=== PATIENT | female | born 1950 | race Caucasian/White ===

== ENCOUNTER 2018-08-01 17:11 | Emergency (ER) | payer OTHER, SELFPAY ==
[2018-08-01 17:13] VITALS: BP 136/62; PULSE 54; RESP 18; TEMP 36.1; O2SAT 99; BMI 22.1
--- NOTE | 2018-08-01 17:16 | NURSING ---
NO OLD EKGS
--- NOTE | 2018-08-01 17:33 | RAD_ITS ---
STUDY: X-RAY CHEST REASON FOR EXAM: Female, 68 years old. Palpitations. Chest pain. TECHNIQUE: Single AP portable view of the chest. COMPARISON: None. FINDINGS: There are monitoring devices. There is mild left perihilar and lower lung increased opacity. There is no demonstrated pleural abnormality. Normal size heart. There is a left paratracheal mass deviating the trachea toward the right suggesting a substernal extension of enlarged thyroid versus less likely lymphadenopathy. Normal visualized pulmonary arteries. Normal visualized aortic arch and descending thoracic aorta. Normal visualized thoracic spine. Normal visualized ribs, clavicles, and shoulders. There is no demonstrated abnormality of the visualized soft tissue structures of the upper abdomen. RAD/Chest 1 View (Portable) IMPRESSION: Left perihilar and lower lung edema or infiltrate. 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 Electronically Signed: Robert Capone MD at 17:56 EDT , Service support ,
--- NOTE | 2018-08-01 17:33 | EKG12_ITS ---
Test Reason : Blood Pressure : / mmHG Vent. Rate : 051 BPM Atrial Rate : 051 BPM P-R Int : 124 ms QRS Dur : 096 ms QT Int : 460 ms P-R-T Axes : 061 027 033 degrees QTc Int : 423 ms Sinus bradycardia Incomplete right bundle branch block Borderline ECG Confirmed by SOLEDAD BUENO, ADAN ([id number]), script editor TAYLER CROSS ([id number]) on 08/06/2018 10:53:09 AM Referred By: DR MARTIN Confirmed By:ADAN ROWE MD
[2018-08-01 17:53] LABS: Absolute Lymphocyte Count 1.35 X10^3/ul (0.83-4.51); Absolute Neutrophil Count 3.5 X10^3/uL (2.0-7.7); Basophil# 0.04 X10^3/uL; Basophil% 0.7 % (0-1); Eosinophil# 0.13 X10^3/uL; Eosinophils% 2.4 % (0-5); Hematocrit 39.5 % (37-47); Hemoglobin 13.1 g/dl (12.0-15.0); Lymphocyte # 1.35 X10^3/ul (4.0); Lymphocyte % 24.5 % (19-41); Mean Corp Hgb Conc 33.2 g/gl (32-36); Mean Corpuscular Hgb 31.3 pg (27.0-32.0); Mean Corpuscular Volume 94.3 fL (81-99); Mean Platelet Vol. 10.7 fl (6.2-12.0); Monocyte# 0.49 X10^3/uL; Monocyte% 8.9 % (0-10); Neutrophil # 3.49 X10^3/uL (2.7-7.7); Neutrophil % 63.5 % (47-70); Platelet Count 225 K/mm3 (150-450); RBC Distribution Width CV 14.5 % (11.6-14.6); RBC Distribution Width SD 49.4 fl (35.1-43.9); Red Blood Count 4.19 M/mm3 (4.2-5.4); White Blood Count 5.5 K/mm3 (4.4-11.0)
[2018-08-01 17:55] LABS: POSITIVE COUNT NO; POSITIVE DIFFERENTIAL NO; POSITIVE MORPHOLOGY NO
[2018-08-01 18:02] LABS: Anion Gap 5 (5-15); BUN 20 mg/dL (7-18); BUN/Creat Ratio 22.9 RATIO (10-20); Calcium,Total 8.6 mg/dL (8.5-10.1); Chloride 106 mmol/L (98-107); Creatinine, Serum 0.87 mg/dL (0.55-1.02); EST Glomerular Filtration Rate 68 mL/min (>60); Est Glom Filt Rate - Afr Amer 83 mL/min (>60); Glucose 130 mg/dL (74-106); Magnesium 1.9 mg/dL (1.6-2.6); Potassium 3.5 mmol/L (3.5-5.1); Sodium Level 140 mmol/L (136-145); Thyroid Stim Hormone (TSH) 0.26 uIU/mL (0.358-3.74)
[2018-08-01] MEDS: Aspirin 81 MG TAB.CHEW 324 MG PO (18:06)
[2018-08-01 18:09] VITALS: O2SAT 100
--- NOTE | 2018-08-01 18:55 | US_ITS ---
STUDY: THYROID ULTRASOUND REASON FOR EXAM: Female, 68 years old. Abnormal chest x-ray. TECHNIQUE: Ultrasound evaluation of the thyroid was performed with real-time and static perez-scale imaging. COMPARISON: None. FINDINGS: RIGHT LOBE: The right lobe of the thyroid gland measures 5.1 x 1.9 x 1.4 cm. There is a homogeneous echotexture. There are 4 nodules measuring 0.3 to 0.6 cm. LEFT LOBE: The left lobe of the thyroid gland measures 9.2 x 5.4 x 3.8 cm. There is a heterogeneous echotexture. There is 6.7 and 2.1 cm nodules in the lower aspect. ISTHMUS: The isthmus measures 0.7 cm. The regional lymph nodes are normal. US/Thyroid IMPRESSION: Multinodular goiter including the large left-sided nodules consistent with chest x-ray abnormality. Electronically Signed: Robert Capone MD at 19:48 EDT , Service support ,
[2018-08-01 19:00] VITALS: BP 132/69; PULSE 51; RESP 16; O2SAT 97
[2018-08-01 19:08] LABS: Free T3 3.1 pg/mL (2.18-3.98); T4 Free Direct 1.08 ng/dL (0.76-1.46)
[2018-08-01 20:00] VITALS: BP 136/62; PULSE 48; RESP 18; O2SAT 97
--- NOTE | 2018-08-01 20:49 | ED.DCSUM_ITS ---
- ER Visit Summary Date of Service: 08/01/18 Chief Complaint: Palpitations History of Present Illness: The patient is a [address] Snowden. She reports that she has palpitations began approximately 1 week ago. States that these are intermittent episodes last minutes at a time. States that it tends to occur at night when she is actually sitting down relaxing. States it is worsened by thinking about it. She reports that she is fine when she is up and walking around. She also reports that this is accompanied by an aching pain is 2 out of 10 at worst and she is pain-free currently. States that she has had some nausea. No vomiting. No diaphoresis or shortness of breath. She describes the palpitations as a fast heartbeat that is not irregular. She denies any other complaints. Physical Examination: Vitals: Stable. Afebrile. General: Well-nourished and well-developed. Head: Normocephalic atraumatic. Neck: Supple, no lymphadenopathy. No JVD. Nontender. Cardiovascular: Regular bradycardic rhythm. No murmurs. Respiratory: No respiratory distress. Clear to auscultation bilaterally. Abdominal: Soft, nontender, nondistended, normal bowel sounds. No guarding, rebound, or peritoneal signs. Back: Nontender. Extremities: Nontender, no edema. Skin: Normal color, no rash. Neurologic: Alert and oriented ?3. Cranial nerves II through XII are intact. Normal strength and sensation. Psych: Normal affect. Test Results: EKG shows sinus bradycardia at [address] changes. There is complete right bundle branch block. There is no old EKG for comparison. Troponin is negative. TSH is 0.26. However her free T4 is 1.08 and her free T3 is 3.1. Magnesium is normal. Chem-7 shows a BUN of 20 and glucose 130. CBC is normal. Clinical Impression(s) from Imaging Studies Chest X-Ray 08/01/18 17:33 IMPRESSION: Left perihilar and lower lung edema or infiltrate. 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 Electronically Signed: Robert Capone MD at 17:56 EDT , Service support , Thyroid Ultrasound 08/01/18 18:55 IMPRESSION: Multinodular goiter including the large left-sided nodules consistent with chest x-ray abnormality. Electronically Signed: Robert Capone MD at 19:48 EDT , Service support , Emergency Department Course and Treatment: Patient is remained bradycardic while here. She is resting comfortably and her blood pressure is normal. Treatment Plan: I did attempt to get a hold of Dr. Snowden without success. The patient will be discharged instructions to follow-up with him for further evaluation of palpitations. I did discuss the goiter and thyroid nodules with her and she will be discharged with instructions to follow-up with Dr. Goldberg for further evaluation of this. Patient was also discussed with Dr. Goldberg. She is happy with this plan. Return to the emergency department for any worsening symptoms. Disposition: To home in improved and stable condition. Impression: 1. Palpitations. 2. Goiter. 3. Thyroid nodules. This note was generated with [employer] software. It may contain incorrect words, spelling, and punctuation that were not noted in review of the chart prior to signing ED Disposition - Plan for ED Patient: Disposition: Home or Assisted Living Instructions: Treating Thyroid Problems, ED Palpitations Referrals: Crow Snowden DO [Primary Care Provider] - As soon as possible Mona Goldberg MD [STAFF PHYSICIAN] - As soon as possible
[2018-08-01 21:17] VITALS: BP 121/74; PULSE 51; RESP 16; O2SAT 98
== END 2018-08-01 21:18 | disposition home or self-care (01) ==
PROVIDERS: Emergency Provider Emergency Medicine; Family Provider Family Medicine; PCP Family Medicine
DX: R00.2 Palpitations (principal); E04.2 Nontoxic multinodular goiter; R11.0 Nausea; R07.9 Chest pain, unspecified
CPT/HCPCS: 71045; 76536; 80048; 83735; 84439; 84443; 84481; 84484; 85025; 93005; 99285; A4216

== ENCOUNTER → 2018-08-16 | Outpatient (CLI) | payer OTHER, SELFPAY ==
[2018-08-01 17:13] VITALS: BMI 22.1
--- NOTE | 2018-08-15 | FLU_PTH ---
PATIENT: MARY DOYLE LOC: [facility] U#:[id number] AGE/SX: 68/F ROOM: RE08/16/[address]: Dr. Mona Goldberg MD : 1950 BED: DIS: 08/16/2018 SPEC #: [id number] RECD: 08/16/18 12:07 STATUS: EVANGELINA RECarlos #: [id number] GRACE: 08/15/18 00:[address]: Mona Goldberg DEPT: CYTOLOGY RECD BY: Brian Lancaster ENTERED: 08/16/18 13:07 SP TYPE: Fluid OTHR DR: Dr. Crow Snowden DO Tissues: A - Thyroid gland, NOS B - Thyroid gland, NOS Procedures: Special Stain Group II Surgery Specimen Level IV Cytospin Fluid Cytology Other HEADER OPERATION: Ultrasound-guided left thyroid biopsy PRE-OP DIAGNOSIS: Abnormal ultrasound, goiter, thyroid nodules TISSUE SUBMITTED: A - Left thyroid specimen for cytology, B - Left thyroid slides x8 DIAGNOSIS CYTOLOGY A. Left thyroid nodule fluid, ultrasound guided FNA (cytospin and cell block): Consistent with benign colloid nodule with focal cystic changes. B. Left thyroid nodule, ultrasound guided FNA (smears): Consistent with benign colloid nodule with focal cystic changes. Adequate for evaluation. SJ:rg 08/17/18 COMMENT Correlation with clinical, radiologic findings and appropriate follow up are necessary. CYTOLOGY STUDY Slides are reviewed. CYTOLOGY GROSS A - Received is 30 ml of cloudy brown fluid labeled with the patient's name and and designated per the requisition as left thyroid. Submitted for cytology preparation including cell block. B - Received are eight smears labeled with the patient's name and designated per the requisition as left thyroid. Submitted for staining. / 08/16/18 TC:5 CPT: 35109, 20617, 56737
== END | disposition home or self-care (01) ==
LOC: LABSPEC 12:51
PROVIDERS: Family Provider Family Medicine; PCP Family Medicine; Referring Provider Surgery; Visit Provider Surgery
DX: E04.2 Nontoxic multinodular goiter (principal)
CPT/HCPCS: 88108; 88161; 88305; 88313